=== PATIENT | female | born 1965 | race Two or more races ===

== ENCOUNTER 2025-02-07 08:03 | Emergency (ER) | payer OTHER ==
[~2025-02-07] VITALS: Ht 160 cm; Wt 80.3 kg
[2025-02-07] MEDS ORDERED: TENORMIN50 M1 (08:05)
[2025-02-07] MEDS ORDERED: ROSUVASTATIN CA10 MG PO (08:05)
[2025-02-07] MEDS ORDERED: LEVO-T75 MCG (08:05)
[2025-02-07] MEDS ORDERED: KETOROLAC TROMETHAMINE 30 MG VIAL ONE (08:36)
[2025-02-07] MEDS ORDERED: ACETAMINOPHEN 500 MG GEL..CAP PO ONE ×2 (08:37→08:45)
[2025-02-07] MEDS ORDERED: TAMSULOSIN HCL 0.4 MG CAP PO ONE ×2 (08:37→08:45)
[2025-02-07] MEDS ORDERED: FAMOTIDINE/PF 20 MG/2 ML VIAL ONE (08:37)
[2025-02-07] MEDS ORDERED: FAMOtidine 10 MG/ML (4ML VIAL) IV PUSH ONE (08:45)
[2025-02-07] MEDS ORDERED: KETOROLAC TROMETHAMINE 30 MG VIAL IV ONE (08:45)
[2025-02-07] MEDS ORDERED: 0.9 % SODIUM CHLORIDE 1,000 ML IV SCH (08:45)
[2025-02-07 09:14] LABS: BASO % 0.4 % (0.1-1.2); EOS # 0.55 (0.04-0.54); EOS % 6.9 % (0.7-7.0); LYMPH # 3.19 (1.18-3.74); LYMPH % 40.3 % (19.3-53.1); MEAN PLATELET VOLUME 11.10 fl (9.4-12.4); MONO # 0.59 (0.24-0.82); MONO % 7.4 % (4.7-12.5); NEUT # 3.56 (1.56-6.13); NEUT % 45.0 % (34.0-71.1); RED CELL DISTRIBUTION WIDTH 13.2 % (11.6-14.4)
[2025-02-07 09:58] LABS: URINE APPEARANCE Clear; URINE BILIRRUBIN Negative (NEGATIVE); URINE BLOOD Trace; URINE COLOR Yellow; URINE GLUCOSE Negative (NEGATIVE); URINE KETONE Negative (NEGATIVE); URINE LEUKOCYTE Small; URINE NITRATE Negative; URINE PROTEIN Negative (NEGATIVE); URINE UROBILINOGEN 0.2 E.U./dl
[2025-02-07 10:03] LABS: URINE BACTERIA 955.0 uL (0.0-1933); URINE EPITHELIAL CELLS 22.3 uL (0.0-38.8); URINE RBC 10.8 uL (0.0-20.8); URINE WBC 167.1 uL (0.0-23.2)
[2025-02-07 10:08] LABS: URINE CAST 0.00 uL (0.0-1.40)
[2025-02-07 10:34] LABS: ALT/SGPT 19.0 U/L (12-78); AST/SGOT 16.0 U/L (15-37); BILIRUBIN TOTAL 0.39 mg/dL (0.3-1.2); BUN CREA RATIO 16.0 (7.0-25.0); CREATININE SERUM 0.87 mg/dL (0.55-1.02); GFR 66.41; GLOBULINA 4.2 G/DL (2.4-3.5); GLUCOSE FASTING 109.0 mg/dL (65-100); OSMOLALITY SERUM 282.0 MOSM/KG (275-295)
[2025-02-07] MEDS ORDERED: PYRIDIUM200 MG PO (12:57)
[2025-02-07] MEDS ORDERED: 8 HOUR PAIN RE650 M1 PO (12:57)
[2025-02-07] MEDS ORDERED: MACROBID 100 M100 MG PO (12:57)
[2025-02-07] MEDS ORDERED: TAMS0.4C PO (12:57)
== END 2025-02-07 13:14 | disposition home or self-care (01) ==
LOC: ER 08:03
PROVIDERS: General Practice
DX: N20.0 Calculus of kidney (principal); E03.9 Hypothyroidism, unspecified